=== PATIENT | male | born 1965 | race Caucasian/White ===

== ENCOUNTER → 2017-07-01 | Emergency (ER) | payer OTHER ==
[~2017-07-01] VITALS: Ht 180.3 cm; Wt 108.9 kg
[~2017-07-01] MED LIST: METOPROLOL SUCC50 MG; VISTARIL50 MG; ZOLOFT100 MG
== END | disposition home or self-care (01) ==
LOC: ER 13:15
DX: J44.9 Chronic obstructive pulmonary disease, unspecified (principal)